=== PATIENT | male | born 1965 | race Caucasian/White ===

== ENCOUNTER 2021-02-17 14:25 | Emergency (ER) | payer MEDICAID, MEDICARE ==
[~2021-02-17] VITALS: Ht 165.1 cm; Wt 70.7 kg
[2021-02-17 14:27] VITALS: BP 131/76
[2021-02-17] MEDS ORDERED: NAPROXEN 250 MG TAB PO ONE (17:45)
[2021-02-17 18:48] LABS: ALBUMIN 3.2 GM/DL (3.2-5.2); ALT/SGPT 33 U/L (12-78); BILIRUBIN,DIRECT < 0.1 MG/DL (0.0-0.2); BILIRUBIN,TOTAL 0.3 MG/DL (0.2-1.0); BLOOD UREA NITROGEN 13 MG/DL (7-18); CARBON DIOXIDE LEVEL 27 MEQ/L (21-32); CHLORIDE LEVEL 109 MEQ/L (98-107); CREATININE FOR GFR 0.67 MG/DL (0.70-1.30); GLOMERULAR FILTRATION RATE > 60.0 (>56); GLUCOSE, FASTING 110 MG/DL (70-100); POTASSIUM SERUM 4.1 MEQ/L (3.5-5.1); SODIUM LEVEL 140 MEQ/L (136-145); TOTAL PROTEIN 6.5 GM/DL (6.4-8.2)
[2021-02-17] MEDS ORDERED: VALT1TAB PO (18:57)
== END 2021-02-17 19:22 | disposition home or self-care (01) ==
LOC: M ED 14:25
DX: L23.1 Allergic contact dermatitis due to adhesives (principal); B02.9 Zoster without complications

== ENCOUNTER → 2022-11-07 | Outpatient (CLI) | payer MEDICARE ==
[~2022-11-07] MED LIST: VALT1TAB PO
== END ==
LOC: M RAD 11:12
PROVIDERS: ATTEND Physician Assistant
DX: I83.811 Varicose veins of right lower extremity with pain (principal)